=== PATIENT | female | born 1965 | race Caucasian/White ===

== ENCOUNTER → 2018-01-31 | Outpatient (CLI) | payer OTHER ==
--- NOTE | 2018-01-31 16:20 | KCIC ---
Examination: Ultrasound thyroid HISTORY: History of neck fullness COMPARISON: None available FINDINGS: The right lobe of the thyroid gland measures 3.9 x 1.2 x 1.5 cm. The left lobe of the thyroid gland measures 4.2 x 1.2 x 1.5 cm. Blood flow identified in the right and left thyroid lobes. The isthmus measures 1.9 mm in AP dimension. No evidence of thyroid nodules identified.. IMPRESSION: Unremarkable exam. Electronically signed by: Dave Pastor MD (01/31/2018 4:16 PM) [place] [id number]
== END | disposition home or self-care (01) ==
LOC: KCIC US 15:24
PROVIDERS: ATTEND Family Medicine
DX: R22.1 Localized swelling, mass and lump, neck (principal)
CPT/HCPCS: 76536

== ENCOUNTER → 2019-01-20 | Outpatient (CLI) | payer OTHER ==
--- NOTE | 2019-01-20 15:08 | RAD ---
EXAM: Abdomen sonogram. HISTORY: Pain. TECHNIQUE: Sonographic imaging of the abdomen was performed. COMPARISON: None. FINDINGS: The liver is normal in size. No focal hepatic lesion is seen. The gallbladder is unremarkable. The common bile duct is normal in caliber. The kidneys normal in size. There is no hydronephrosis. The pancreas, spleen, aorta and inferior vena cava are unremarkable. IMPRESSION: Unremarkable abdomen sonogram. Electronically signed by: Dionne Kent MD (01/20/2019 3:05 PM) [facility]
== END | disposition home or self-care (01) ==
LOC: US 14:13
PROVIDERS: ATTEND Family Medicine
DX: R10.9 Unspecified abdominal pain (principal)
CPT/HCPCS: 76700

== ENCOUNTER → 2019-02-10 | Outpatient (CLI) | payer OTHER ==
--- NOTE | 2019-02-10 12:02 | RAD ---
EXAM: CT Abdomen and Pelvis without IV contrast CLINICAL HISTORY: Hematuria COMPARISON: Ultrasound abdomen 01/20/2019 TECHNIQUE: Helical CT of the abdomen and pelvis without intravenous contrast. Axial, coronal and sagittal reformatted images were generated. PQRS compliance statement - One or more of the following individualized dose reduction techniques were utilized for this study: 1. Automated exposure control 2. Adjustment of the mA and/or kV according to patient size 3. Use of iterative reconstruction technique FINDINGS: Lack of intravenous contrast limits evaluation of solid organs, vasculature, and lymph nodes. Lower chest: Calcified granuloma right lower lobe. Abdomen and Pelvis: Subcentimeter hypodense right hepatic lobe lesion is too small to accurately characterize. Gallbladder is normal. No biliary duct dilatation. Pancreas is unremarkable. Calcified granuloma are seen within the spleen. Adrenal glands are normal. No focal renal lesion. No hydronephrosis. No renal tract calculus. No hydroureter. The bladder is decompressed, otherwise grossly normal in appearance. Appendix is normal. Moderate colonic stool content is seen. No small or large bowel dilatation. No evidence for bowel obstruction. No abdominal or pelvic ascites. No abdominal or pelvic lymphadenopathy. Small fat-containing periumbilical hernia. Aorta is normal in caliber. Uterus and adnexa are grossly unremarkable. Bones: Degenerative changes of the spine are seen. Grade 1 anterolisthesis of L5 on S1 likely degenerative. IMPRESSION: 1. No renal tract calculus. No focal renal lesion within the constraints of this noncontrast examination. 2. The decompressed bladder is otherwise grossly unremarkable 3. Small fat-containing periumbilical hernia. Electronically signed by: Ponce Rivera MD (02/10/2019 11:59 AM) [facility]
== END | disposition home or self-care (01) ==
LOC: CT 08:37
PROVIDERS: ATTEND Family Medicine
DX: K42.9 Umbilical hernia without obstruction or gangrene (principal); J84.10 Pulmonary fibrosis, unspecified
CPT/HCPCS: 74176

== ENCOUNTER → 2019-08-22 | Outpatient (CLI) | payer OTHER ==
[~2019-08-22] MED LIST: AMOX500T PO; FEXO60TA10 PO; HYDR-3164 PO; MAGN500C10 PO
== END | disposition home or self-care (01) ==
LOC: LAB 13:24
PROVIDERS: ATTEND Surgery
DX: Z01.818 Encounter for other preprocedural examination (principal); Z11.59 Encounter for screening for other viral diseases; K42.9 Umbilical hernia without obstruction or gangrene
CPT/HCPCS: C9803; U0003

== ENCOUNTER 2019-08-26 06:01 | Day surgery (SDC) | payer OTHER ==
[~2019-08-26] VITALS: Ht 160 cm; Wt 60.0 kg
[~2019-08-26 06:01] MED LIST changes: -HYDR-3164 PO; +ceFAZolin SODIUM IV Push 1 GM VIAL. IVP PRN
[2019-08-26] MEDS ORDERED: MIDAZOLAM HCL/PF 2 MG/2 ML VIAL. ONE (06:58)
[2019-08-26] MEDS ORDERED: ONDANSETRON PF 4 MG/2 ML VIAL. ONE (06:58)
[2019-08-26] MEDS ORDERED: LIDOCAINE 1% PF 5 ML VIAL. ONE (06:58)
[2019-08-26] MEDS ORDERED: PROPOFOL 10 MG/ML (20ML) VIAL. IV ONE (06:58)
[2019-08-26] MEDS ORDERED: DEXAMETHASONE SOD PHOS 4 MG/ML VIAL ONE (06:58)
[2019-08-26] MEDS ORDERED: ROCURONIUM 50 MG/5 ML VIAL. ONE (06:58)
[2019-08-26] MEDS ORDERED: fentaNYL PF VIAL 100 MCG/2 ML VIAL ONE ×2 (06:58→09:39)
[2019-08-26] MEDS ORDERED: ONDANSETRON PF 4 MG/2 ML VIAL. IV PRN (07:00)
[2019-08-26] MEDS ORDERED: fentaNYL PF VIAL 100 MCG/2 ML VIAL IV PRN ×2 (07:00)
[2019-08-26] MEDS ORDERED: IV RINGERS,LACTATED 1000ML 1,000 ML IV SCH (07:00)
[2019-08-26] MEDS ORDERED: PROCHLORPERAZINE 10 MG/2 ML VIAL. IV PRN (07:00)
[2019-08-26] MEDS ORDERED: HYDROmorphone 2 MG/ML VIAL IV PRN (07:00)
[2019-08-26] MEDS ORDERED: MORPHINE SULFATE 2 MG/ML VIAL. IV PRN (07:00)
[2019-08-26] MEDS ORDERED: BUPIVACAINE-EPI 0.5%-1:200000 MPF 30 ML VIAL. ONE (07:09)
[2019-08-26] MEDS ORDERED: NEOSTIGMINE METHYLSULFATE 5 MG/5 ML SYRINGE. ONE (08:07)
[2019-08-26] MEDS ORDERED: GLYCOPYRROLATE 1 MG/5 ML VIAL. ONE (08:07)
[2019-08-26] MEDS ORDERED: KETOROLAC 30 MG/ML VIAL. ONE (08:34)
--- NOTE | 2019-08-26 08:47 | DISCH ---
DISCHARGE INSTRUCTIONS Condition on Discharge Condition on Discharge: Stable Activity After Discharge Activity Instructions for Disc: Other, see below (no lifting over 20 lbs X 4 weeks) Driving Instructions after Dis: Other, see below (no driving if taking pain meds) Diet after Discharge Diet after Discharge: Regular Wound Incision Care Wound/Incision Care: Other, see below (keep dressing clean and dry X 72 hours, may then remove and shower) Follow-Up Follow up with: Dr Lee in office in 2 weeks, call for appt [phone] GERARDO LEE MD Aug 26, 2019 08:47
--- NOTE | 2019-08-26 08:52 | PDOC4 ---
Operative Note Operative Note Operative Note: Preoperative Diagnosis: Umbilical hernia Postoperative Diagnosis: Same Procedure: Umbilical hernia repair with mesh Surgeon: Gilberto Anesthesia: General EBL: 10 mL Specimen: None Drains: None Complications: None Indication: The patient is a 54-year-old female who was referred with umbilical hernia. She is interested in surgical repair. The risks of surgery were discussed which include bleeding, infection, recurrence, pain, potential need for additional surgery procedure. She understands and would like to proceed. Description: The patient was taken to the operating room and placed supine on the operating table. General anesthesia was performed. The abdomen is prepped with ChloraPrep and draped in a standard surgical manner. A small curved infraumbilical incision was made in the skin with a scalpel. Cautery dissection was carried down to the fascia. The umbilical tissue was elevated off the fascia exposing the hernia defect. A preperitoneal plane was developed circumferentially using blunt dissection. A small Ventralex ST mesh was then placed in this a defect. The mesh was sutured into position with 0 Prolene placed in a horizontal mattress fashion. The fascial edges were then closed over the mesh with 0 Prolene. The umbilical tissue was secured back to the fascia with 0 Vicryl. The subcutaneous tissue was closed with 3-0 Vicryl. The skin was closed with 4-0 Monocryl. The skin was infiltrated with half percent Marcaine with epinephrine. Steri-Strips and a sterile dressing were applied. The patient tolerated the procedure well and was sent to the recovery room in stable condition. At the end of the case all counts were correct. GERARDO LEE MD Aug 26, 2019 08:52
[2019-08-26] MEDS ORDERED: HYDR-3164 PO (09:00)
[2019-08-26] MEDS ORDERED: HYDROcodone/APAP 5/325MG 1 TAB TABLET PO ONE (09:30)
[2019-08-26 09:45] VITALS: BP 99/46
== END 2019-08-26 10:25 | disposition home or self-care (01) ==
LOC: SURG 06:01
PROVIDERS: ATTEND Surgery
DX: K42.9 Umbilical hernia without obstruction or gangrene (principal); Z79.899 Other long term (current) drug therapy
CPT/HCPCS: 49585; A7015; C1781; J0690; J1100; J1885; J2250; J2405; J2704; J2710; J3010; J3490

== ENCOUNTER → 2020-07-14 | Outpatient (CLI) | payer OTHER ==
[~2020-07-14] MED LIST changes: +CONTRAST GIVEN. MC PRN; +HYDR-3164 PO; +IOHEXOL 240 MG/ML 50ML VIAL. PO ONE; +IOHEXOL 300 MG/ML 100ML VIAL. IV ONE; -ceFAZolin SODIUM IV Push 1 GM VIAL. IVP PRN
--- NOTE | 2020-07-14 16:18 | RAD ---
CT abdomen pelvis with contrast dated 07/14/2020. Comparison made to 02/10/2019. Clinical data indication: Lower abdominal pain. TECHNIQUE: Contiguous axial imaging the abdomen pelvis performed after the administration of 75 cc Omnipaque 300 . One or more of the following individualized dose reduction techniques were utilized for this examinat ion: 1. Automated exposure control 2. Adjustment of the mA and/or kV according to patient size 3. Use of iterative reconstruction technique. FINDINGS: Limited images of lung bases are clear. Heart size within normal limits. No pleural or pericardial ef fusion. Liver, spleen, pancreas, adrenal glands, gallbladder and kidneys are unremarkable. No hydronephrosis. Partially opacified GI tract normal in caliber and contour. No focal bowel wall thickening. No inflam matory stranding in the mesentery. The appendix is normal in caliber. No ascites or lymphadenopathy. Abdominal aorta normal in caliber. Images of pelvis show nondistended urinary bladder. Uterus and adnexa are unremarkable. No free fluid or lymphadenopathy. Bone windows show no acute findings. There is slight anterolisthesis of L5 on S1, unchanged. Multilev el spondylosis. There is been interval umbilical hernia repair. IMPRESSION: 1. No acute abnormality of abdomen or pelvis. Normal appendix. 2. Interval umbilical hernia repair with no apparent complication. Electronically signed by: Kevin Naqvi MD (07/14/2020 4:16 PM) [id number]
== END ==
LOC: CT 14:25
PROVIDERS: ATTEND Family Medicine
DX: K42.9 Umbilical hernia without obstruction or gangrene (principal)
CPT/HCPCS: 74177; Q9966; Q9967